=== PATIENT | male | born 1935 | race Caucasian/White ===

== ENCOUNTER 2024-04-22 12:32 | Observation (INO) | payer OTHER ==
[2024-04-22 12:38] VITALS: BMI 22.6
[2024-04-22] MEDS: LACTATED RINGERS SOLUTION 1000 ML INFUS.BAG IV ONE (14:50)
[2024-04-22 14:52] LABS: BASO % 0.3 % (0-2.0); EOS % 0.1 % (0-4.5); HEMATOCRIT 42.5 % (35.4-49); HEMOGLOBIN 14.5 GM/dL (11.7-16.9); LYMPH % 5.9 % (8-40); MCH 30.5 pg (25.7-33.7); MCHC 34.1 g/dl (32.0-35.9); MEAN CELL VOLUME 89.3 fl (80-96); MEAN PLT VOLUME 8.5 fl (7.5-11.1); MONO % 7.3 % (3.8-10.2); NEUT % 86.4 % (42.8-82.8); PLATELET COUNT 163 10^3/uL (134-434); RBC 4.75 M/mm3 (4.00-5.60); RDW 13.5 % (11.9-15.9); WHITE BLOOD COUNT 8.2 K/mm3 (4.0-10.0)
[2024-04-22 14:58] LABS: INR 0.99 (0.83-1.09); PROTHROMBIN TIME (PATIENT) 11.4 SEC (9.7-13.0)
[2024-04-22 15:00] LABS: ACTIVATED PTT 31.8 SECONDS (25.2-36.5)
[2024-04-22 15:59] LABS: URINE APPEARANCE CLEAR; URINE BILIRUBIN NEGATIVE (NEGATIVE); URINE COLOR YELLOW; URINE GLUCOSE (UA) NEGATIVE (NEGATIVE); URINE KETONE TRACE (NEGATIVE); URINE LEUK ESTERASE NEGATIVE (NEGATIVE); URINE NITRITE NEGATIVE (NEGATIVE); URINE PROTEIN NEGATIVE (NEGATIVE); URINE UROBILINOGEN 0.2 mg/dL (0.2-1.0)
[2024-04-22 16:27] LABS: CHOLESTEROL 177 mg/dL (50-200)
[2024-04-22 16:29] LABS: LDL CHOLESTEROL (ONLY SJRH) 100 mg/dL (5-100)
[2024-04-22 16:30] LABS: HDL CHOLESTEROL 34 mg/dL (40-60)
[2024-04-22 16:34] LABS: POTASSIUM 3.9 mmol/L (3.5-5.1)
[2024-04-22 16:36] LABS: ALBUMIN 3.5 g/dl (3.4-5.0); BLOOD UREA NITROGEN 21.4 mg/dL (7-18); CALCIUM 8.7 mg/dL (8.5-10.1); MAGNESIUM 1.9 mg/dL (1.8-2.4)
[2024-04-22 16:39] LABS: CREATININE 1.4 mg/dL (0.55-1.3)
[2024-04-22 16:41] LABS: BILIRUBIN,TOTAL 0.4 mg/dL (0.2-1); TOT PROT 7.2 g/dl (6.4-8.2)
[2024-04-22] MEDS ORDERED: ATORVASTATIN CA 40 MG TABLET (FP) ONE (19:06)
[2024-04-22] MEDS ORDERED: ASPIRIN 81 MG CHEWABLE TABLETS ONE (19:06)
[2024-04-22] MEDS: ATORVASTATIN CA 40 MG TABLET (FP) PO ONE (19:08)
[2024-04-22] MEDS: ASPIRIN 81 MG CHEWABLE TABLETS PO ONE (19:08)
[2024-04-23 07:41] LABS: BASO % 0.4 % (0-2.0); EOS % 0.2 % (0-4.5); HEMATOCRIT 40.9 % (35.4-49); HEMOGLOBIN 13.8 GM/dL (11.7-16.9); LYMPH % 14.3 % (8-40); MCH 30.5 pg (25.7-33.7); MCHC 33.7 g/dl (32.0-35.9); MEAN CELL VOLUME 90.5 fl (80-96); MONO % 11.6 % (3.8-10.2); NEUT % 73.5 % (42.8-82.8); PLATELET COUNT 132 10^3/uL (134-434); RBC 4.51 M/mm3 (4.00-5.60); RDW 13.5 % (11.9-15.9)
[2024-04-23 07:58] LABS: POTASSIUM 3.9 mmol/L (3.5-5.1)
[2024-04-23 08:01] LABS: CALCIUM 8.3 mg/dL (8.5-10.1)
[2024-04-23 08:05] LABS: CREATININE 1.2 mg/dL (0.55-1.3)
[2024-04-23 16:16] VITALS: BP 167/72; PULSE 76; RESP 20; TEMP 100.4
== END 2024-04-23 17:14 | disposition home or self-care (01) ==
LOC: JER 12:32 → JERBED 19:18 → J4W 04-23 14:49
PROVIDERS: ADMIT Internal Medicine; ATTEND Nurse Practitioner Acute Care
PROC: 3E0337Z Introduction of Electrolytic and Water Balance Substance into Peripheral Vein, Percutaneous Approach (ICD-10-PCS; principal; 2024-04-22)
DX: R27.0 Ataxia, unspecified (principal); Z98.890 Other specified postprocedural states; Z29.89 Encounter for other specified prophylactic measures; H40.9 Unspecified glaucoma
CPT/HCPCS: 0241U-QW; 36415; 70450-TC; 71045-TC-FY; 80048; 80053; 80061; 81003; 83036; 83735; 84484; 85025; 85610; 85730; 86850; 86900; 86901; 87086; 93005; 93010; 99285-25; G0378